=== PATIENT | female | born 1995 | race American Indian/Alaskan Native ===

== ENCOUNTER 2019-03-19 07:57 | Emergency (ER) | payer BC ==
[2019-03-19 08:02] VITALS: BP 123/72
--- NOTE | 2019-03-19 10:33 | Event Note ---
ED Screening Note Date of service: 03/19/19 Time: 09:30 ED Screening Note: Steffi 3-year-old female with no prior medical history presents ED complaining of body aches chills and fever for the past couple of days. Patient states that she feels like all her body is hurting. Patient states her last menstrual period was 2 weeks ago. Patient states that she did have a sick contact. Chest complains of cough and runny nose and congestion. This initial assessment/diagnostic orders/clinical plan/treatment(s) is/are subject to change based on patients health status, clinical progression and re- assessment by fellow clinical providers in the ED. Further treatment and workup at subsequent clinical providers discretion. Patient/guardian urged not to elope from the ED as their condition may be serious if not clinically assessed and managed. Initial orders include: Urinalysis and urine test ordered. Vital signs are normal patient is in no acute distress Patient left the ED room prior to leaving the sample.
== END 2019-03-19 10:22 | disposition left against medical advice (07) ==
LOC: ED 07:57
DX: R11.10 Vomiting, unspecified (principal); Z53.21 Procedure and treatment not carried out due to patient leaving prior to being seen by health care provider